=== PATIENT | male | born 1935 | race Caucasian/White ===

== ENCOUNTER 2020-04-17 22:16 | Emergency (ER) | payer OTHER, MEDICAID, SELFPAY ==
[~2020-04-17] VITALS: Ht 167.6 cm; Wt 63.5 kg
[2020-04-17 22:20] VITALS: BP_SYST 122
--- NOTE | 2020-04-17 22:54 | NUR ---
CORRECTION, PT TO BED 8
--- NOTE | 2020-04-17 22:54 | NUR ---
Patient to ER bed 7 to gown for evaluation. Side rails up. Report given to AMANDA FELIX.
--- NOTE | 2020-04-17 23:00 | NUR ---
PT ALERT BIB AMBULANCE FROM [facility] FOR PRODUCTIVE COUGH X 3 DAYS. SNF REPORTS CHILLS, SORE THROAT, AND BODY ACHES. PT HAS A POSITIVE COVID TEST FROM 3 DAYS AGO.
--- NOTE | 2020-04-17 23:30 | NUR ---
ER Dr. PATTEN at bedside examining patient.
--- NOTE | 2020-04-17 23:40 | NUR ---
ABG BEING DONE AT BEDSIDE PER R.T.
--- NOTE | 2020-04-17 23:50 | NUR ---
COVID SWAB OBTAINED AND SENT
--- NOTE | 2020-04-18 | NUR ---
PORTABLE CXR DONE AT BEDSIDE
[2020-04-18 00:24] LABS: BASOPHILS % (AUTO) 0.5 % (0.0-2.0); EOSINOPHILS # (AUTO) 0.2 K/uL (0.0-0.4); EOSINOPHILS % (AUTO) 4.1 % (0.0-4.0); HEMATOCRIT 46.4 % (36-54); HEMOGLOBIN 15.5 g/dL (14.0-18.0); LYMPHOCYTES # (AUTO) 1.7 K/uL (1.0-5.5); LYMPHOCYTES % (AUTO) 29.7 % (20.5-51.5); MEAN CORPUSCULAR HEMOGLOBIN 31 pg (27-31); MEAN CORPUSCULAR HGB CONC 33 % (32-36); MEAN CORPUSCULAR VOLUME 94 fL (79.0-98.0); MONOCYTES # (AUTO) 0.8 K/uL (0.0-1.0); MONOCYTES % (AUTO) 14.4 % (1.7-9.3); NEUTROPHILS % (AUTO) 51.3 % (40.0-70.0); PLATELET COUNT (AUTO) 136 K/uL (130-430); RED BLOOD CELL COUNT(AUTO) 4.94 MIL/uL (4.2-6.2); RED CELL DISTRIBUTION WIDTH 14.8 % (9.0-15.0); WHITE BLOOD COUNT (AUTO) 5.9 K/uL (4.8-10.8)
[2020-04-18 00:41] LABS: ANION GAP 5 (5-15); CALCIUM 8.2 mg/dL (8.4-11.0); CHLORIDE 102 mmol/L (98-107); CREATININE 1.15 mg/dL (0.55-1.30); GLUCOSE 91 mg/dL (70-99); POTASSIUM 3.5 mmol/L (3.5-5.1); SODIUM SERUM 138 mmol/L (136-145); UREA NITROGEN, BLOOD 23 mg/dL (8-21)
[2020-04-18 00:44] LABS: PROTHROMBIN TIME 10.4 SECS (9.5-12.5)
[2020-04-18 00:54] LABS: ALANINE AMINOTRANSFERASE 14 U/L (12-78); ALBUMIN 3.4 g/dL (3.4-4.8); ASPARTATE AMINOTRANSFERASE 19 U/L (10-37); LACTATE DEHYDROGENASE 127 U/L (85-227); TOTAL BILIRUBIN 0.6 mg/dL (0.0-1.0)
[2020-04-18 00:56] LABS: FIBRINOGEN 432 mg/dL (200-400)
[2020-04-18 01:07] LABS: C-REACTIVE PROTEIN QUANT 4.6 mg/dL (0-0.5)
[2020-04-18] MEDS ORDERED: AZITHROMYCIN 250 MG TABLET PO ONE (01:30)
--- NOTE | 2020-04-18 01:30 | NUR ---
PT V/S STABLE AWAITING DISPOSITION
[2020-04-18] MEDS ORDERED: AZITHROMYCIN 100 MG/5 ML SUSPENSION ONE (01:32)
[2020-04-18] MEDS ORDERED: AZITHROMYCIN 250 MG TABLET ONE (01:40)
--- NOTE | 2020-04-18 02:20 | NUR ---
CALLED REPORT TO UMBERTO Lu AND PROVIDED REPORT TO MEHUL
[2020-04-18 02:25] VITALS: BP_SYST 99
--- NOTE | 2020-04-18 02:25 | NUR ---
Patient given written and verbal discharge instructions and verbalizes understanding. DR. EARLINE FULLER MD discussed with patient the results and treatment provided. Patient in stable condition. ID arm band removed. Patient educated on pain management and to follow up with PMD. Pain Scale 0/10. Opportunity for questions provided and answered. TRANSPORT HERE TO TRANSFER PT BACK TO [facility]
[2020-04-18 02:48] LABS: BILIRUBIN,URINE NEGATIVE (NEGATIVE); BLOOD, URINE NEGATIVE (NEGATIVE); CLARITY/URINE CLEAR (CLEAR); COLOR,URINE YELLOW (YELLOW); GLUCOSE,URINE NEGATIVE (NEGATIVE); KETONES,URINE NEGATIVE (NEGATIVE); LEUKOCYTE ESTERASE ,URINE NEGATIVE (NEGATIVE); NITRITE, URINE NEGATIVE (NEGATIVE); PROTEIN URINE NEGATIVE (NEGATIVE); UROBILINOGEN,URINE 0.2 (0.2-1.0)
== END 2020-04-18 02:25 | disposition home or self-care (01) ==
LOC: SED 22:16
DX: U07.1 COVID-19 (principal); F17.290 Nicotine dependence, other tobacco product, uncomplicated; I25.2 Old myocardial infarction
CPT/HCPCS: 36415; 36600; 71045; 80053; 81003; 82550; 82728; 82803; 83605; 83615; 83880; 84484; 85025; 85379; 85384; 85610; 85730; 86140; 87040; 87086; 87426; 93005; 99285; Q0144